=== PATIENT | male | born 1935 | race Caucasian/White ===

== ENCOUNTER → 2019-06-19 | Outpatient (CLI) | payer MEDICARE | LOC: ZCOL.LAB 14:22 | DX: I10 Essential (primary) hypertension (principal) ==

== ENCOUNTER → 2019-06-23 | Outpatient (REF) ==
[2019-06-23 18:23] LABS: BILIRUBIN,TOTAL 0.7 mg/dL (0.0-1.0); CALCIUM 8.7 mg/dL (8.4-10.2); CREATININE, serum 0.63 (0.66-1.25); POTASSIUM 4.2 mmol/L (3.4-5.0); TOTAL PROTEIN 5.7 gm/dL (6.4-8.2)
[2019-06-23 18:43] LABS: HEMOGLOBIN 11.2 g/dl (13.5-18.0); MEAN CELL VOLUME 89 fl (80.0-100.0); MEAN CORPUSCULAR HEMOGLOBIN 28 pg (27.0-31.0); MEAN CORPUSCULAR HGB CONC 32 g/dl (33.0-37.0); MEAN PLATELET VOLUME 11.1 fl (7.4-10.4); PLATELET COUNT 362 K/mm3 (130-400); RED BLOOD COUNT 3.94 M/mm3 (4.20-5.60); REDCELL DISTRIBUTION WIDTH-CV 13.5 % (11.5-14.5)
[2019-06-23 18:51] LABS: HEMATOCRIT 35.1 % (42.0-52.0)
[2019-06-23 19:23] LABS: BAND 6 % (0-10); EOSINOPHIL 1 % (0-4); LYMPHOCYTE 3 % (20.0-51.0); NEUTROPHILS 86 % (42.0-75.2); PLATELET ESTIMATE NORMAL (NORMAL)
== END ==
LOC: ZLAB.STJ 15:43 → EDSTATUS 06-24 07:44
DX: I10 Essential (primary) hypertension (principal)

== ENCOUNTER 2019-06-27 18:29 | Inpatient (IN) | payer MEDICARE ==
[~2019-06-27] VITALS: Ht 188 cm; Wt 79.6 kg
[2019-06-27 19:16] LABS: MEAN CELL VOLUME 88 fl (80.0-100.0); MEAN CORPUSCULAR HGB CONC 33 g/dl (33.0-37.0); MEAN PLATELET VOLUME 10.8 fl (7.4-10.4); PLATELET COUNT 289 K/mm3 (130-400); RED BLOOD COUNT 3.43 M/mm3 (4.20-5.60); REDCELL DISTRIBUTION WIDTH-CV 13.4 % (11.5-14.5)
[2019-06-27 19:22] LABS: HEMATOCRIT 30.2 % (42.0-52.0); HEMOGLOBIN 9.8 g/dl (13.5-18.0); MEAN CORPUSCULAR HEMOGLOBIN 29 pg (27.0-31.0)
[2019-06-27 19:23] LABS: BILIRUBIN,TOTAL 0.6 mg/dL (0.0-1.0); C-REACTIVE PROTEIN 6.3 mg/dL (0.0-0.9); CALCIUM 8.9 mg/dL (8.4-10.2); CREATININE, serum 0.95 (0.66-1.25); POTASSIUM 4.2 mmol/L (3.4-5.0); TOTAL PROTEIN 5.9 gm/dL (6.4-8.2)
[2019-06-27 19:32] LABS: TROPONIN-I 0.017 ng/mL (0.000-0.035)
[2019-06-27 19:59] LABS: BAND 1 % (0-10); EOSINOPHIL 2 % (0-4); LYMPHOCYTE 20 % (20.0-51.0); NEUTROPHILS 70 % (42.0-75.2); PLATELET ESTIMATE NORMAL (NORMAL)
[2019-06-27 20:00] LABS: ANISOCYTOSIS 1+; HYPOCHROMIA 1+; MICROCYTOSIS 1+
[2019-06-27 20:06] LABS: COLLECTION METHOD CLEAN CATCH
[2019-06-27 20:14] LABS: MUCOUS Present /lpf; PH 5 (5-8); SQUAMOUS EPITHELIAL 0-2 /hpf; URINE APPEARANCE Cloudy; URINE BACTERIA Rare /hpf; URINE BILIRUBIN Negative (NEGATIVE); URINE BLOOD Negative (NEGATIVE); URINE COLOR Amber; URINE GLUCOSE Negative (NEGATIVE); URINE KETONE Negative (NEGATIVE); URINE LEUKOCYTE ESTERASE 1+ (NEGATIVE); URINE NITRATE Negative (NEGATIVE); URINE PROTEIN(semi-quant) Negative (NEGATIVE); URINE RBC 0-2 /hpf; URINE UROBILINOGEN Negative (NEGATIVE)
[2019-06-27 20:28] LABS: INR 1.3 (0.8-3.0); PROTHROMBIN TIME 15.7 SECONDS (9.7-12.8)
[2019-06-27 22:16] VITALS: BP 122/54; PULSE 71; TEMP 97.9
[2019-06-27] MEDS ORDERED: SENOKOT S 50 MG1 TAB PO (22:33)
[2019-06-27] MEDS ORDERED: TYLENOL 325MG325 MG PO (22:36)
[2019-06-27] MEDS ORDERED: LEVSIN 0.10.125 MG/T PO (22:42)
[2019-06-27] MEDS ORDERED: CULTURELLE1 EAC1 PO (22:43)
[2019-06-27] MEDS ORDERED: MIRALAX PA17 GM/Dose PO (22:44)
[2019-06-27] MEDS ORDERED: ROXICODONE 55 MG/TAB PO (22:44)
[2019-06-27] MEDS ORDERED: SALINE 45 ML45 ML NS (22:46)
[2019-06-27] MEDS ORDERED: [UNRECOGNIZED DRUG - OTHER] PO (22:48)
[2019-06-27] MEDS ORDERED: DIFLUCAN 100MG100 MG PO (22:48)
[2019-06-27] MEDS ORDERED: BACTRIM DS 8001 TAB PO (22:49)
[2019-06-27 23:01] VITALS: BP 125/61; PULSE 70; TEMP 97.6
--- NOTE | 2019-06-28 01:10 | NUR ---
Pt. arrived to the floor around 2300. Pt. is alert and forgetful. Pt. needs reminding frequently. Pt. is easily reoriented. Pt. is not a good hystorian, majority of addmission completed with H&P from longterm. Pt. report lt. groin is tender. Lt. groin had a large amount of dried drainage noted. area cleaned and placed telfa pads between scrotum and thigh. Scrotum, penis, thigh and LLQ excoriated. IV to rt. ac patent, IV fluids infusing per orders. Pt. requests to use the bathroom frequently. Pt. will not use the urinal. Pt. does have small amounts of unmeasured urine output. Pt. also had a sm. soft formed bm after arriving to the floot. Pt. denies needs, call light within reach, bedalarm on.
[2019-06-28 04:09] VITALS: BP 124/44; PULSE 76; TEMP 98.1
[2019-06-28 08:05] VITALS: BP 136/52; PULSE 80; TEMP 98.1
--- NOTE | 2019-06-28 10:00 | NUR ---
Dr. Guevara saw patient. Minimal complaints of pain in left groin. Afebrile.
[2019-06-28 12:09] VITALS: BP 133/52; PULSE 76; TEMP 97.3
--- NOTE | 2019-06-28 13:00 | NUR ---
No complaints. Afebrile. Ambulatory in room with standby assist.
[2019-06-28 15:58] VITALS: BP 127/49; PULSE 78; TEMP 98.9
--- NOTE | 2019-06-28 16:40 | NUR ---
Tylenol given for c/o back pain.
--- NOTE | 2019-06-28 18:00 | NUR ---
No complaints. Family at bedside.
[2019-06-28 19:32] VITALS: BP 123/41; PULSE 74; TEMP 97.6
[2019-06-28 23:52] VITALS: BP 126/44; PULSE 76; TEMP 99.2
[2019-06-29 04:10] VITALS: BP 130/58; PULSE 72; TEMP 98.3
--- NOTE | 2019-06-29 06:00 | NUR ---
Pulled IV out to right AC. Restarted-x2 attempts-22g to left forearm. Tolerated well
[2019-06-29 07:21] VITALS: BP 121/43; PULSE 68; TEMP 97.9
[2019-06-29 11:43] VITALS: BP 125/53; PULSE 75; TEMP 97.6
[2019-06-29 16:04] VITALS: BP 118/49; PULSE 77; TEMP 98.8
--- NOTE | 2019-06-29 17:30 | NUR ---
Alert. Forgetful. Minimal complaints of pain. Tylenol given once this shift for c/o lower back pain and left groin pain. Slightly less redness left groin and lower abdominal area. Afebrile.
[2019-06-29 19:20] VITALS: BP 136/50; PULSE 79; TEMP 98.8
--- NOTE | 2019-06-29 19:23 | NUR ---
Sitting up in bed with eyes open. Explains that he is ready to go to sleep and hopes that he sleeps well tonight. Denies pain at this time. Having discomfort in groin area. Left groin and perineal area red with mild edema. Patient denies further complaints or needs.
[2019-06-29 22:55] VITALS: BP 128/51; PULSE 77; TEMP 98.5
--- NOTE | 2019-06-30 03:01 | NUR ---
Lying in bed with eyes closed. Respirations even and unlabored. No signs or symptoms of discomfort noted.
--- NOTE | 2019-06-30 04:14 | NUR ---
Assisted up to bathroom to urinate. Gait slow but steady. Has discomfort when walking. Patient able to urinate. Applied antifungal powder to groin area. Patient returns to bed. Assisted to comfortable position. Patient denies further needs at this time.
[2019-06-30 04:22] VITALS: BP 137/65; PULSE 74; TEMP 98.3
--- NOTE | 2019-06-30 06:16 | NUR ---
Up to restroom. Voids without difficulty. Has pain with ambulation. Returns to bed. Denies further needs at this time.
--- NOTE | 2019-06-30 07:30 | NUR ---
Dr Guevara here to see patient.
[2019-06-30 07:35] VITALS: BP 136/70; PULSE 83; TEMP 98.8
[2019-06-30 08:49] VITALS: BP 136/70; PULSE 83; TEMP 98.8
--- NOTE | 2019-06-30 09:00 | NUR ---
Patient alert and partially oriented. See assessment. Left groin area with minimal redness and edema, no drainage noted. No c/o pain to groin area. C/o chronic low back pain 11/10. No other c/o at this time.
--- NOTE | 2019-06-30 11:26 | NUR ---
News Reporter met with the patient to discuss discharge planning. Patient states he lives in [place] by himself and sees Dr. Williamson in [facility] for primary care. Patient states he belives his daughter, Val is his DPOA-HC. ELIUD contacted patient's son in law, Maurice Nash (ph#[phone]) as he was listed in patient record as DPOA-HC. Maurice states patient is a poor historian and currently lives at [facility]. Maurice states his , patient's daughter, Val is main DPOA-HC. Maurice states family is in agreeance on patient returning to [facility]. ELIUD contacted Burke at [facility] who advised they would accept patient back, however need a prior auth due to Medicare Advantage Plan. ELIUD faxed updates to [facility] and updated patient RN, Elva.
[2019-06-30 11:28] VITALS: BP 128/53; PULSE 69; TEMP 97.8
--- NOTE | 2019-06-30 11:31 | NUR ---
Diesel Tractor Engine Mechanic was contacted by Burke at [facility] who advised they could not accept patient into the building without prior authorization. Burke is unsure of when prior authorization will be accepted. SW updated patient RN, Elva.
--- NOTE | 2019-06-30 12:51 | NUR ---
Initial visit; Patient thanked [facility] Psychiatrist for looking in on him and offering God's blessings.
--- NOTE | 2019-06-30 13:22 | NUR ---
Resistance Machine Welder Setter was contacted by Burke at [facility] who advised pre authorization had been obtained so patient could discharge this afternoon to [facility]. SW relayed this information to patient RN, Elva. Patient will be picked up by [facility] at 2:00pm. SW contacted patient's daughter, Val (ph#[phone]) to notify her that patient is to discharge this afternoon to [facility]. ELIUD explained IM form and emailed Val a copy to sign, scan and return. SW notified patient that he is to discharge this afternoon to [facility]. SW faxed discharge orders to [facility]. SW will continue to follow as needed.
--- NOTE | 2019-06-30 14:20 | NUR ---
Patient discharged to [facility] via wheelchair/transportation staff at 1410. Paperwork sent, report called.
--- NOTE | 2019-06-30 14:48 | NUR ---
Multiple Coil Winder [facility] SW placed the IM in patient chart. No additional needs at this time.
== END 2019-06-30 14:10 | DRG 863 ==
LOC: COL.ER 18:29 → SURG 21:25
PROVIDERS: Emergency Medicine; ADMIT Urology
DX: T81.49XA Infection following a procedure, other surgical site, initial encounter (principal); L03.314 Cellulitis of groin; F03.90 Unspecified dementia, unspecified severity, without behavioral disturbance, psychotic disturbance, mood disturbance, and anxiety; C62.10 Malignant neoplasm of unspecified descended testis; C76.3 Malignant neoplasm of pelvis
CPT/HCPCS: J0692; J1644; J3370; J7030; J7050; Q9967

== ENCOUNTER → 2019-07-10 | Outpatient (CLI) | payer MEDICARE ==
[~2019-07-10] MED LIST: BACTRIM DS 8001 TAB PO; CULTURELLE1 EAC1 PO; DIFLUCAN 100MG100 MG PO; LEVSIN 0.10.125 MG/T PO; MIRALAX PA17 GM/Dose PO; ROXICODONE 55 MG/TAB PO; SALINE 45 ML45 ML NS; SENOKOT S 50 MG1 TAB PO; TYLENOL 325MG325 MG PO; [UNRECOGNIZED DRUG - OTHER] PO
== END ==
LOC: ZCOL.LAB 17:17
DX: I10 Essential (primary) hypertension (principal)

== ENCOUNTER → 2019-07-14 | Outpatient (CLI) | payer MEDICARE ==
[2019-07-14 11:21] LABS: BASO # 0.1 (0.0-0.2); BASO % 0.9 % (0.0-2.0); EOS # 0.2 (0.0-0.7); EOS % 1.8 % (0-4.0); GRAN # 6.4 (1.4-6.5); GRAN % 55.2 % (42.2-75.2); HEMOGLOBIN 10.4 g/dl (13.5-18.0); LYMPH # 4.2 (1.2-3.4); LYMPH % 35.7 % (20.0-51.0); MEAN CELL VOLUME 85 fl (80.0-100.0); MEAN CORPUSCULAR HEMOGLOBIN 27 pg (27.0-31.0); MEAN CORPUSCULAR HGB CONC 32 g/dl (33.0-37.0); MEAN PLATELET VOLUME 11.1 fl (7.4-10.4); MONO # 0.7 (0.1-0.6); PLATELET COUNT 375 K/mm3 (130-400); RED BLOOD COUNT 3.85 M/mm3 (4.20-5.60); REDCELL DISTRIBUTION WIDTH-CV 14.5 % (11.5-14.5)
[2019-07-14 11:23] LABS: HEMATOCRIT 32.6 % (42.0-52.0)
== END ==
LOC: ZLAB.STJ 10:32
DX: I10 Essential (primary) hypertension (principal)

== ENCOUNTER → 2021-08-01 | Emergency (ER) | payer MEDICARE ==
[~2021-08-01] VITALS: Ht 188 cm; Wt 81.8 kg
[2021-08-01 16:47] VITALS: TEMP 98.2
[2021-08-01 17:45] LABS: BASO # 0.1 K/mm3 (0.0-0.2); BASO % 0.9 % (0.0-2.0); EOS # 0.1 K/mm3 (0.0-0.7); EOS % 1.1 % (0-4.0); GRAN # 6.4 K/mm3 (1.4-6.5); GRAN % 59.2 % (42.2-75.2); HEMATOCRIT 40.3 % (42.0-52.0); HEMOGLOBIN 13.7 g/dl (13.5-18.0); LYMPH # 3.1 K/mm3 (1.2-3.4); MEAN CELL VOLUME 90 fl (80.0-100.0); MEAN CORPUSCULAR HEMOGLOBIN 31 pg (27.0-31.0); MEAN CORPUSCULAR HGB CONC 34 g/dl (33.0-37.0); MEAN PLATELET VOLUME 11.8 fl (7.4-10.4); MONO % 9.5 % (1.7-9.3); PLATELET COUNT 203 K/mm3 (130-400); RED BLOOD COUNT 4.49 M/mm3 (4.20-5.60); REDCELL DISTRIBUTION WIDTH-CV 14.2 % (11.5-14.5)
[2021-08-01 18:01] LABS: ALBUMIN 3.6 gm/dL (3.4-4.8); BILIRUBIN,TOTAL 1.5 mg/dL (0.2-1.2); CALCIUM 8.7 mg/dL (8.4-10.2); CREATININE, serum 0.82 mg/dL (0.72-1.25)
[2021-08-01 20:14] VITALS: BP 134/92; PULSE 108
== END ==
LOC: COL.ER 16:28
PROVIDERS: Physician Assistant
DX: C41.4 Malignant neoplasm of pelvic bones, sacrum and coccyx (principal); K65.1 Peritoneal abscess; I10 Essential (primary) hypertension; E78.5 Hyperlipidemia, unspecified; Z79.899 Other long term (current) drug therapy
CPT/HCPCS: Q9967

== ENCOUNTER 2022-01-28 13:29 | Observation (INO) | payer MEDICARE ==
[~2022-01-28] VITALS: Ht 185.4 cm; Wt 79.2 kg
[~2022-01-28 13:29] MED LIST changes: +FLOMAX 0.40.4 MG/CAP PO; +LIPITOR 40MG TA40 MG PO; +NATURAL IRON65 MG; +NORCO 325 MG-51 TAB PO; +NYSTATIN100000 U/1 TOP
[2022-01-28 14:09] LABS: BASO # 0.1 K/mm3 (0.0-0.2); BASO % 0.7 % (0.0-2.0); EOS % 0.3 % (0.0-4.0); GRAN # 7.3 K/mm3 (1.4-6.5); GRAN % 66.3 % (42.2-75.2); HEMOGLOBIN 12.3 g/dl (13.5-18.0); LYMPH # 2.8 K/mm3 (1.2-3.4); LYMPH % 25.6 % (20.0-51.0); MEAN CELL VOLUME 92 fl (80.0-100.0); MEAN CORPUSCULAR HEMOGLOBIN 31 pg (27-31); MEAN CORPUSCULAR HGB CONC 33 g/dl (33.0-37.0); MEAN PLATELET VOLUME 11.3 fl (7.4-10.4); MONO # 0.7 K/mm3 (0.1-0.6); MONO % 6.7 % (1.7-9.3); PLATELET COUNT 195 K/mm3 (130-400); REDCELL DISTRIBUTION WIDTH-CV 14.3 % (11.5-14.5)
[2022-01-28 14:10] LABS: HEMATOCRIT 36.8 % (42.0-52.0)
--- NOTE | 2022-01-28 18:05 | NUR ---
Patient to room 325 from the ED. Patient ambulated with 1xassist to the bed. Nurse oriented the patient to location, room and call light. Patient A&Ox2, confused on location. Call light within reach. Bed alarm on
[2022-01-28 18:11] VITALS: BP 143/85; PULSE 84; TEMP 97.9
--- NOTE | 2022-01-28 21:00 | NUR ---
Pt. sitting up in bed. Pt. is alert and confused to place and time. Pt. denies pain. Pt. able to ambulate to the bathroom with standby assist and gait belt. Pt. repositioned in bed after trip to the bathroom. Pt. denies further needs, call light within reach.
[2022-01-28 21:31] VITALS: BP 113/73; PULSE 86; TEMP 97.2
[2022-01-29] VITALS (7 sets, daily range): BP systolic 103–131; BP diastolic 52–77; PULSE 81–99; TEMP 97.7–98.9
--- NOTE | 2022-01-29 05:46 | NUR ---
Pt. has had mild bleeding to the scrotum through the night. With pad changes about every 3-4 hours through the night. Pads are only mildy soiled. Pt. denies pain to the area. Pt. continues to be confused. Bed alarm on for safety.
[2022-01-29 07:13] LABS: BASO # 0.1 K/mm3 (0.0-0.2); BASO % 0.5 % (0.0-2.0); EOS # 0.1 K/mm3 (0.0-0.7); EOS % 1.1 % (0.0-4.0); GRAN # 7.2 K/mm3 (1.4-6.5); GRAN % 63.1 % (42.2-75.2); HEMOGLOBIN 11.1 g/dl (13.5-18.0); LYMPH # 2.9 K/mm3 (1.2-3.4); LYMPH % 25.3 % (20.0-51.0); MEAN CELL VOLUME 93 fl (80.0-100.0); MEAN CORPUSCULAR HEMOGLOBIN 31 pg (27-31); MEAN CORPUSCULAR HGB CONC 33 g/dl (33.0-37.0); MEAN PLATELET VOLUME 12.4 fl (7.4-10.4); MONO # 1.1 K/mm3 (0.1-0.6); MONO % 9.6 % (1.7-9.3); PLATELET COUNT 188 K/mm3 (130-400); RED BLOOD COUNT 3.61 M/mm3 (4.20-5.60); REDCELL DISTRIBUTION WIDTH-CV 14.2 % (11.5-14.5)
--- NOTE | 2022-01-29 07:13 | NUR ---
Nurse assisted the patient with standby assist to the bathroom. Patient A&Ox2, confused on location. Reports discomfort, but denies pain. Steady on feet. Call light within reach. Bed alarm on
[2022-01-29 07:20] LABS: HEMATOCRIT 33.6 % (42.0-52.0)
--- NOTE | 2022-01-29 15:58 | NUR ---
Lily spoke with Amairani GARDNER, daughter of pt. She reports her dad was on hospice yesterday and last night she signed him off due to the bleeding he was having. She reports she would like her father to be back on hospice and they do not want him in a long term. She reports he lives at home and has caregivers, hospice team, family to help him. She reports he uses a walker most of the time, but she has to be remind him to use it. PCP is Robinson Kearney and gets his medications from [facility]. SERGIOHC: Val [phone] DC: Pending care plan
--- NOTE | 2022-01-29 17:45 | NUR ---
Patient laying in bed, A&Ox2, but confused on location and why he cant go home. Nursing staff reorienting patient as needed. VSS. IV CDI. Has been setting off the bed alarm needing to go to the bathroom. Patients brief and inner pad has moderate amount of sanginous output. Patient independent with feeds. Call light within reach. Bed alarm on
--- NOTE | 2022-01-29 19:38 | NUR ---
PT DOES NOT FOLLOW DIRECTION. 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 DOES NOT KNOW WHERE HE IS. DOESN'T BELIEVE HE IS 86, ALTHOUGH GIVES CORRECT BIRTHDAY. THINKS IT IS 2021. REORIENTED ATTEMPTED. PLACED IN RECLINER WITH CHAIR ALARM ON.
--- NOTE | 2022-01-29 20:42 | NUR ---
PT BACK TO BED WITH ASSIST OF 1. DEPENDS ON WITH VPAD, HAS MILD BLEEDING NOTED ON PAD. MEDICATED WITH HS MEDS INCLUDING ONE TIME DOSE OF SEROQUEL. INT TO LFA, FLUSHES WELL. BED ALARM ON.
--- NOTE | 2022-01-29 23:01 | NUR ---
PT UP TO URINATE OFTEN, MEDICATED WITH NORCO FOR SCROTAL PAIN. CHANGING VPAD WITH EACH VOID, MODERATE BLEEDING.
--- NOTE | 2022-01-30 04:30 | NUR ---
PT IMPULSIVE, TRYING TO GET UP ON OWN. ASSISTED TO BATHROOM, CHUX WAS SOAKED WITH URINE WELL DEPENDS. MINIMAL BLEEDING. PERICARES PROVIDED WITH NEW DEPENDS AND VPAD. BACK TO BED, BED ALARM ON.
[2022-01-30 04:40] VITALS: BP 115/68; PULSE 85; TEMP 97.4
[2022-01-30 07:28] LABS: BASO # 0.1 K/mm3 (0.0-0.2); BASO % 0.7 % (0.0-2.0); EOS # 0.2 K/mm3 (0.0-0.7); EOS % 1.8 % (0.0-4.0); GRAN # 6.3 K/mm3 (1.4-6.5); GRAN % 61.3 % (42.2-75.2); HEMOGLOBIN 10.8 g/dl (13.5-18.0); LYMPH # 2.7 K/mm3 (1.2-3.4); MEAN CELL VOLUME 94 fl (80.0-100.0); MEAN CORPUSCULAR HEMOGLOBIN 30 pg (27-31); MEAN CORPUSCULAR HGB CONC 33 g/dl (33.0-37.0); MEAN PLATELET VOLUME 11.8 fl (7.4-10.4); MONO % 9.8 % (1.7-9.3); PLATELET COUNT 178 K/mm3 (130-400); RED BLOOD COUNT 3.55 M/mm3 (4.20-5.60); REDCELL DISTRIBUTION WIDTH-CV 14.4 % (11.5-14.5)
[2022-01-30 07:30] LABS: HEMATOCRIT 33.2 % (42.0-52.0)
[2022-01-30 08:00] VITALS: BP 126/54; PULSE 82; TEMP 97.4
--- NOTE | 2022-01-30 12:27 | NUR ---
ELIUD called by DPOA/HC/daughter Val Nash [phone] to answer questions in regards to her father's care. Val states that she would like for her father to return home and not a facility. Due to coming from home prior to hospitalization. Patient was previously on hospice and taken off due to hospitalization. Val provides that patient would be returning home upon DC on hospice services and care givers in place. Patient will be dishcarged tomorrow and picked up in the evening by family. Evening is the earliest time of pick due to obtaining reliable transportation. ELIUD will continue to follow.
[2022-01-30 16:00] VITALS: BP 106/58; PULSE 98; TEMP 98.3
--- NOTE | 2022-01-30 16:20 | NUR ---
PT HAS BEEN RESTING IN BED MOST OF DAY SINCE NOON WITH EYES CLOSED. PT NOT DISTURBED FOR NOON VITAL SIGNS. RESPIRATIONS UNLABORED ON RA. PT IS IMPULSIVE WHEN NEEDING TO USE BR, HAS BEEN INCONTINENT OF URINE ET HAS HAD A MODERATE AMOUNT OF BLOOD IN HIS DEPENDS. PT IS UNSTEADY ET WEAK WHEN STANDING ET WALKING. PT DENIES PAIN WHEN ASKED, STATES IT IS JUST MILD DISCOMFORT BUT OCCASIONALLY GRIMACES WITH MOVEMENT. PT IS CONFUSED/DISORIENTED TO EVERYTHING BUT SELF, IS PLEASANT ET COOPERATIVE BUT FORGETFUL. BED ALARM IS ON. CALL LIGHT WITHIN REACH.
[2022-01-30 20:12] VITALS: BP 112/55; PULSE 103; TEMP 98.2
--- NOTE | 2022-01-30 22:00 | NUR ---
PATIENT HAS BEEN UP IMPULSIVELY SEVERAL TIMES TO USE BATHROOM. VOIDING WITHOUT ISSUE AND HAD SMALL BROWN FORMED BM. LIGHT BLEEDING TO L TESTICLE. HS MEDS PER EMAR. BED ALARM ON. INT L FA PATENT AND FLUSHED.
[2022-01-31 00:29] VITALS: BP 93/71; PULSE 100; TEMP 98.5
[2022-01-31 04:53] VITALS: BP 90/46; PULSE 72; TEMP 97.6
[2022-01-31 06:30] LABS: BASO # 0.1 K/mm3 (0.0-0.2); BASO % 0.6 % (0.0-2.0); EOS # 0.2 K/mm3 (0.0-0.7); EOS % 1.7 % (0.0-4.0); GRAN # 7.3 K/mm3 (1.4-6.5); HEMOGLOBIN 10.9 g/dl (13.5-18.0); LYMPH # 2.9 K/mm3 (1.2-3.4); LYMPH % 25.2 % (20.0-51.0); MEAN CELL VOLUME 92 fl (80.0-100.0); MEAN CORPUSCULAR HEMOGLOBIN 31 pg (27-31); MEAN CORPUSCULAR HGB CONC 33 g/dl (33.0-37.0); MEAN PLATELET VOLUME 12.1 fl (7.4-10.4); MONO # 1.1 K/mm3 (0.1-0.6); MONO % 9.2 % (1.7-9.3); PLATELET COUNT 202 K/mm3 (130-400); RED BLOOD COUNT 3.55 M/mm3 (4.20-5.60); REDCELL DISTRIBUTION WIDTH-CV 14.5 % (11.5-14.5)
[2022-01-31 06:34] LABS: HEMATOCRIT 32.8 % (42.0-52.0)
[2022-01-31 07:55] VITALS: BP 122/61; PULSE 116; TEMP 97.4
[2022-01-31 12:00] VITALS: BP 99/60; PULSE 75; TEMP 98.6
--- NOTE | 2022-01-31 12:55 | NUR ---
Tube Sizer And Cutter Operator contacted patient's daughter, Val to review discharge plan. Val confirmed she will turkey picker patient tonight and patient will return home with hospice services. Val reported that they use [facility]. ELIUD contacted [facility] and faxed referral with discharge orders. Sol, RN at [facility] advised they are good to accept patient. ELIUD updated patient's RN. Discharge Plan: Home tonight with [facility]
--- NOTE | 2022-01-31 13:22 | NUR ---
Initial visit; Daily Rounds; Patient thanked Blast Furnace Operator for looking in on him and was receptive to Blast Furnace Operator keeping him in her prayers. Blast Furnace Operator offered God's blessings.
[2022-01-31 15:50] VITALS: BP 124/72; PULSE 91; TEMP 97.5
--- NOTE | 2022-01-31 18:20 | NUR ---
PT DISCHARGED TO HOME @ 1820 WITH FAMILY, WILL GO BACK ON HOSPICE. PT ACCOMPANIED VIA WC WITH OMI STEVEN. PT WAS IMPULSIVE DURING THE DAY ONLY WHEN NEEDING TO USE BR, WOULD GET UP ON OWN. BED ALARMS WERE USED. PT WAS ORIENTED TO SELF ONLY. PT WAS OCCASIONALLY INCONTINENT OF URINE. BLEEDING IN DEPENDS WAS A MODERATE AMOUNT. BRIEFS WERE CHANGED ET JOURDAN CARE COMPLETED. PT DENIED PAIN DURING DAY WHEN ASKED, INTERMITTENTLY SLEPT.
== END 2022-01-31 18:20 | disposition home or self-care (01) ==
LOC: COL.ER 13:29 → SURG 15:57
PROVIDERS: Family Medicine; ADMIT Internal Medicine
DX: C63.2 Malignant neoplasm of scrotum (principal); C41.9 Malignant neoplasm of bone and articular cartilage, unspecified; R58 Hemorrhage, not elsewhere classified
CPT/HCPCS: 99231-AI; 99238; G0378